=== PATIENT | female | born 1995 | race Caucasian/White ===

== ENCOUNTER 2022-05-26 01:26 | Emergency (ER) | payer BC ==
[~2022-05-26] VITALS: Ht 160 cm; Wt 47.6 kg
[2022-05-26] MEDS ORDERED: PROCHLORPERAZINE EDISYLATE 10 MG/2 ML VIAL IV ONE (02:15)
[2022-05-26] MEDS ORDERED: IV NS 1000 ML 1,000 ML IV ONE (02:15)
[2022-05-26] MEDS ORDERED: PROCHLORPERAZINE EDISYLATE 10 MG/2 ML VIAL ONE (02:31)
--- NOTE | 2022-05-26 02:48 | NUR ---
Patient resting comfortably in bed. No signs of distress. Family member at bedside.
[2022-05-26] MEDS ORDERED: PROC10TA29 PO (02:54)
[2022-05-26 03:39] VITALS: BP 105/55
--- NOTE | 2022-05-26 03:39 | NUR ---
Patient discharged to home in stable condition. Written and verbal after care instructions given. Patient verbalizes understanding of instructions. Stressed follow up or return to ER for worsening s/s.
== END 2022-05-26 03:40 | disposition home or self-care (01) ==
LOC: ER 01:26
DX: F10.129 Alcohol abuse with intoxication, unspecified (principal); R11.2 Nausea with vomiting, unspecified; Z79.899 Other long term (current) drug therapy; Y90.9 Presence of alcohol in blood, level not specified
CPT/HCPCS: 99283; 96374; 96361; J0780; J7040; A4663

== ENCOUNTER 2023-08-23 08:22 | Emergency (ER) | payer BC ==
[~2023-08-23] VITALS: Ht 157.5 cm; Wt 48.1 kg
[~2023-08-23 08:22] MED LIST: PROC10TA29 PO
[2023-08-23] MEDS ORDERED: METOCLOPRAMIDE HCL 10 MG/2 ML VIAL ONE (08:47)
[2023-08-23] MEDS: METOCLOPRAMIDE HCL 10 MG/2 ML VIAL IV ONE (08:49)
[2023-08-23 09:13] LABS: BASOPHILS % (AUTO) 0.3 % (0.0-2.0); EOSINOPHILS % (AUTO) 0.1 % (0.0-7.0); HEMATOCRIT 36.3 % (31.2-41.9); HEMOGLOBIN 11.8 g/dL (10.9-14.3); LYMPHOCYTES # (AUTO) 1.1 K/uL (0.8-4.8); LYMPHOCYTES % (AUTO) 16.7 % (20.5-51.5); MEAN CORPUSCULAR HEMOGLOBIN 31.5 uug (24.7-32.8); MEAN CORPUSCULAR HGB CONC 33 g/dL (32.3-35.6); MEAN CORPUSCULAR VOLUME 96.7 fL (75.5-95.3); MONOCYTES # (AUTO) 0.3 K/uL (0.1-1.30); MONOCYTES % (AUTO) 4.2 % (0.0-11.0); NEUTROPHILS # (AUTO) 5.1 K/uL (1.8-8.9); NEUTROPHILS % (AUTO) 78.7 % (38.5-71.5); PLATELET COUNT (AUTO) 187 K/uL (179-408); RED BLOOD CELL COUNT(AUTO) 3.75 MIL/uL (3.63-4.92); RED CELL DISTRIBUTION WIDTH 13.8 % (12.3-17.7); WHITE BLOOD COUNT (AUTO) 6.5 K/uL (3.8-11.8)
[2023-08-23 09:16] LABS: DIFFERENTIAL COMMENT 1
[2023-08-23 09:20] LABS: CALCIUM 8.9 mg/dL (8.5-10.1); CREATININE 0.6 mg/dL (0.6-1.3); POTASSIUM 3.9 mmol/L (3.5-5.1)
[2023-08-23 09:26] LABS: ALBUMIN 3.7 g/dL (3.4-5.0); BILIRUBIN,DIRECT 0.2 mg/dL (0.0-0.2); BILIRUBIN,TOTAL 0.6 mg/dL (0.2-1.0); TOTAL PROTEIN, SERUM 7.2 g/dL (6.4-8.2)
[2023-08-23] MEDS ORDERED: KETOROLAC TROMETHAMINE 15 MG INJ ONE (09:39)
[2023-08-23] MEDS: KETOROLAC TROMETHAMINE 15 MG INJ IVP ONE (09:42)
[2023-08-23] MEDS ORDERED: IOHEXOL 350 100 ML INFUS..BTL ONE (10:01)
[2023-08-23] MEDS ORDERED: SWABABLE VALVE TRANSFER SET EA MC ONE (10:01)
[2023-08-23] MEDS ORDERED: IV NORMAL SALINE 250 ML IV ONE (10:01)
[2023-08-23] MEDS ORDERED: HYDROCODONE/APAP 5-325MG TABLET ONE (10:28)
[2023-08-23] MEDS: HYDROCODONE/APAP 5-325MG TABLET PO ONE (10:29)
[2023-08-23] MEDS ORDERED: ACETAMINOPHEN 500 MG TABLET ONE ×2 (12:04)
[2023-08-23] MEDS: ACETAMINOPHEN 500 MG TABLET PO ONE (12:05)
[2023-08-23 12:12] VITALS: BP 101/74; TEMP 97.8; O2SAT 100
== END 2023-08-23 12:15 | disposition home or self-care (01) ==
LOC: ER 08:23
DX: R51.9 Headache, unspecified (principal); R10.2 Pelvic and perineal pain; R11.2 Nausea with vomiting, unspecified
CPT/HCPCS: 99285; 70496; 96374; 96375; 80076; 80048; 85025; 85730; 86850; 86900; 86901; 84702; 36415; 70498; 70450; J1885; J2765; Q9967; A4606; A4663; A9150

== ENCOUNTER 2023-10-27 18:42 | Emergency (ER) | payer BC ==
[~2023-10-27] VITALS: Ht 157.5 cm; Wt 49.0 kg
[2023-10-27 20:18] VITALS: BP 101/44; O2SAT 96
== END 2023-10-27 20:18 | disposition home or self-care (01) ==
LOC: ER 18:42
DX: S61.012A Laceration without foreign body of left thumb without damage to nail, initial encounter (principal); Z79.899 Other long term (current) drug therapy; W26.8XXA Contact with other sharp object(s), not elsewhere classified, initial encounter; Y93.89 Activity, other specified; Y92.89 Other specified places as the place of occurrence of the external cause; Y99.8 Other external cause status
CPT/HCPCS: A4606; A4663